=== PATIENT | female | born 1945 | race Caucasian/White ===

== ENCOUNTER 2020-06-28 16:47 | Outpatient (RCR) | payer MEDICARE | END 2020-06-29 | LOC: PT 16:47 | PROVIDERS: ATTEND Neurological Surgery | DX: M48.062 Spinal stenosis, lumbar region with neurogenic claudication (principal); R26.2 Difficulty in walking, not elsewhere classified; M62.81 Muscle weakness (generalized); M54.5 Low back pain; M53.86 Other specified dorsopathies, lumbar region ==